=== PATIENT | female | born 1995 | race Caucasian/White ===

== ENCOUNTER 2017-04-02 19:44 | Emergency (ER) | payer MEDICAID ==
[~2017-04-02] VITALS: Ht 160 cm; Wt 182.0 kg
[~2017-04-02 19:44] MED LIST: ALBU6.7H INH; IBUP-1984 PO; NO HOME MEDS; OMEP40CA37 PO; ONDA4TAB6 PO; PANT40TA39 PO; PRED20TA PO; TRAM50TA2 PO
[2017-04-02 20:27] LABS: BASOPHILS # (AUTO) 0.1 X10'3 (0-0.2); BASOPHILS % (AUTO) 1.1 % (0-1); EOSINOPHILS # (AUTO) 0.2 X10'3 (0-0.9); EOSINOPHILS % (AUTO) 1.2 % (0-6); HEMATOCRIT 41.6 % (35.0-45.0); LYMPHOCYTES # (AUTO) 3.5 X10'3 (1.1-4.8); LYMPHOCYTES % (AUTO) 27.1 % (21-51); MEAN CORPUSCULAR HEMOGLOBIN 28.7 PG (27.0-31.0); MEAN CORPUSCULAR HGB CONC 33.7 % (33.0-36.5); MEAN CORPUSCULAR VOLUME 85.3 FL (78-98); MEAN PLATELET VOLUME 8.8 FL (7.4-10.4); MONOCYTES # (AUTO) 0.6 X10'3 (0-0.9); MONOCYTES % (AUTO) 4.9 % (2-12); NEUTROPHILS # (AUTO) 8.5 X10'3 (1.8-7.7); NEUTROPHILS % (AUTO) 65.7 % (42-75); PLATELET COUNT 358 X10'3 (140-440); RED BLOOD COUNT 4.88 X10'6 (4.20-5.60); RED CELL DISTRIBUTION WIDTH 15.4 % (11.5-14.5); WHITE BLOOD COUNT 12.9 X10'3 (4.5-11.0)
[2017-04-02 20:38] LABS: PROTHROMBIN TIME 10.6 SECONDS (9.0-12.0)
[2017-04-02 20:39] LABS: CLARITY,URINE CLEAR (Clear); COLOR,URINE YELLOW (Yellow); GLUCOSE, URINE NEGATIVE (Neg); KETONES,URINE NEGATIVE (Neg); LEUKOCYTE ESTERASE ,URINE NEGATIVE (Neg); NITRITES, URINE NEGATIVE (Neg); OCCULT BLOOD,URINE LARGE (Neg); PROTEIN,URINE NEGATIVE (Neg); UROBILINOGEN,URINE 0.2 E.U/dL (0.2-1.0)
[2017-04-02 20:45] LABS: UA COLLECTION TYPE CLN CATCH MIDSTREAM
[2017-04-02 20:46] LABS: BACTERIA,URINE FEW /HPF (Neg); RBC,URINE 0-2 /HPF (0-2); SQUAMOUS EPITHELIAL CELL,UR FEW /LPF (FEW); WBC,URINE 0-4 /HPF (0-4)
[2017-04-02 20:48] LABS: ALANINE AMINOTRANSFERASE 54 U/L (12-78); ALBUMIN 3.3 G/DL (3.4-5.0); ALBUMIN/GLOBULIN RATIO 0.7 (1.1-1.5); ALKALINE PHOSPHATASE 126 IU/L (46-116); ANION GAP 8 (8-16); ASPARTATE AMINO TRANSFERASE 35 U/L (10-37); BILIRUBIN,TOTAL 0.3 MG/DL (0.1-1.0); BLOOD UREA NITROGEN 9 MG/DL (7-18); BUN/CREATININE RATIO 11.3 (6.6-38.0); CALCIUM 8.8 MG/DL (8.5-10.1); CHLORIDE 105 MMOL/L (99-107); GLUCOSE 123 MG/DL (70-104); SODIUM 142 MMOL/L (135-145); TOTAL CARBON DIOXIDE 28.8 MMOL/L (24-32); TOTAL PROTEIN 8.3 G/DL (6.4-8.2); eGFR 90 ML/MIN
[2017-04-02 22:29] LABS: URINE HCG NEGATIVE (NEG)
[2017-04-02 22:51] VITALS: BP 123/59
== END 2017-04-02 22:52 | disposition home or self-care (01) ==
LOC: ER 19:44
DX: N93.9 Abnormal uterine and vaginal bleeding, unspecified (principal); G43.909 Migraine, unspecified, not intractable, without status migrainosus; J45.909 Unspecified asthma, uncomplicated; Z59.0 Homelessness; Z79.899 Other long term (current) drug therapy; Z91.018 Allergy to other foods
CPT/HCPCS: 36415; 80053; 81001; 81025; 85025; 85610; 99284

== ENCOUNTER 2017-07-24 20:53 | Emergency (ER) | payer MEDICAID ==
[~2017-07-24] VITALS: Ht 160 cm; Wt 149.0 kg
[2017-07-24 21:00] VITALS: BP 153/114
[2017-07-24] MEDS ORDERED: amox tr/potassium clavulanate 875/125mg TAB PO ONE (21:50)
[2017-07-24] MEDS ORDERED: ibuprofen tablet 400 MG TABLET PO ONE (21:50)
[2017-07-24] MEDS ORDERED: TETanus/Pertussis (Acell)/Diphther VAC/PF (Tdap-Adult) 0.5ml syringe IM ONE (21:50)
[2017-07-24] MEDS ORDERED: AMOX-422 PO (21:51)
== END 2017-07-24 22:16 | disposition home or self-care (01) ==
LOC: ER 20:53
DX: S51.811A Laceration without foreign body of right forearm, initial encounter (principal); J45.909 Unspecified asthma, uncomplicated; G43.909 Migraine, unspecified, not intractable, without status migrainosus; Z59.0 Homelessness; Z91.018 Allergy to other foods; Z79.899 Other long term (current) drug therapy; W26.0XXA Contact with knife, initial encounter; Y93.89 Activity, other specified; Y92.89 Other specified places as the place of occurrence of the external cause; Y99.8 Other external cause status
CPT/HCPCS: 90471; 90715; 99283

== ENCOUNTER 2017-12-02 16:19 | Inpatient (IN) | payer MEDICAID ==
[~2017-12-02] VITALS: Ht 160 cm; Wt 179.0 kg
[2017-12-02 17:08] LABS: BASOPHILS % (AUTO) 0.2 % (0-1); EOSINOPHILS # (AUTO) 0.1 X10'3 (0-0.9); EOSINOPHILS % (AUTO) 0.5 % (0-6); HEMATOCRIT 43.2 % (35.0-45.0); HEMOGLOBIN 14.6 g/dl (12.0-16.0); LYMPHOCYTES # (AUTO) 1.5 X10'3 (1.1-4.8); LYMPHOCYTES % (AUTO) 13.1 % (21-51); MEAN CORPUSCULAR HEMOGLOBIN 29.1 PG (27.0-31.0); MEAN CORPUSCULAR HGB CONC 33.8 % (33.0-36.5); MEAN CORPUSCULAR VOLUME 86.1 FL (78-98); MEAN PLATELET VOLUME 9.1 FL (7.4-10.4); MONOCYTES # (AUTO) 0.4 X10'3 (0-0.9); MONOCYTES % (AUTO) 3.5 % (2-12); NEUTROPHILS # (AUTO) 9.6 X10'3 (1.8-7.7); NEUTROPHILS % (AUTO) 82.7 % (42-75); PLATELET COUNT 328 X10'3 (140-440); RED BLOOD COUNT 5.02 X10'6 (4.20-5.60); RED CELL DISTRIBUTION WIDTH 14.7 % (11.5-14.5); WHITE BLOOD COUNT 11.6 X10'3 (4.5-11.0)
[2017-12-02 17:16] LABS: CLARITY,URINE CLOUDY (Clear); COLOR,URINE YELLOW (Yellow); GLUCOSE, URINE NEGATIVE (Neg); KETONES,URINE NEGATIVE (Neg); LEUKOCYTE ESTERASE ,URINE TRACE (Neg); NITRITES, URINE NEGATIVE (Neg); OCCULT BLOOD,URINE SMALL (Neg); PROTEIN,URINE TRACE mg/dl (Neg); UROBILINOGEN,URINE 0.2 E.U/dL (0.2-1.0)
[2017-12-02 17:18] LABS: INR 1.1 INR; PROTHROMBIN TIME 11.2 SECONDS (9.0-12.0)
[2017-12-02 17:20] LABS: URINE HCG NEGATIVE (NEG)
[2017-12-02 17:26] LABS: ALANINE AMINOTRANSFERASE 35 U/L (12-78); ALBUMIN 3.2 G/DL (3.4-5.0); ALBUMIN/GLOBULIN RATIO 0.6 (1.1-1.5); ALKALINE PHOSPHATASE 106 IU/L (46-116); ANION GAP 9 (8-16); ASPARTATE AMINO TRANSFERASE 23 U/L (10-37); BILIRUBIN,TOTAL 0.7 MG/DL (0.1-1.0); BLOOD UREA NITROGEN 10 MG/DL (7-18); BUN/CREATININE RATIO 11.5 (6.6-38.0); CALCIUM 8.5 MG/DL (8.5-10.1); CHLORIDE 98 MMOL/L (99-107); CREATININE 0.87 MG/DL (0.40-0.90); GLUCOSE 91 MG/DL (70-104); LIPASE 74 U/L (73-393); POTASSIUM 3.6 MMOL/L (3.5-5.1); SODIUM 134 MMOL/L (135-145); TOTAL CARBON DIOXIDE 26.6 MMOL/L (24-32); TOTAL PROTEIN 8.6 G/DL (6.4-8.2); eGFR 81 ML/MIN
[2017-12-02 17:38] LABS: UA COLLECTION TYPE CLN CATCH MIDSTREAM
[2017-12-02 17:39] LABS: BACTERIA,URINE 3+ /HPF (Neg); MUCUS STRANDS MODERATE /LPF (Neg); RBC,URINE 0-2 /HPF (0-2); SQUAMOUS EPITHELIAL CELL,UR MANY /LPF (FEW)
[2017-12-02] MEDS ORDERED: morphine 4 MG/ML inj SYRINge IV PRN (17:40)
[2017-12-02] MEDS ORDERED: normal saline 1000ML IV soln IVB ONE (17:40)
[2017-12-02] MEDS ORDERED: ondansetron/PF 4mg/2ml inj IV ONE (17:40)
[2017-12-02 18:00] VITALS: BP 144/76
[2017-12-02] MEDS ORDERED: ketorolac trometh. 30mg/ml inj. IV ONE (18:00)
[2017-12-02] MEDS ORDERED: piperacillin/tazo 3.375gm/50ml 50 ML IV ONE (18:40)
[2017-12-02] MEDS ORDERED: dextrose 5%-1/2 normal saline 1,000 ML IV SCH (19:12)
[2017-12-02] MEDS ORDERED: bisacodyl 10mg suppository rectal RC PRN (19:15)
[2017-12-02] MEDS ORDERED: ondansetron/PF 4mg/2ml inj IV PRN (19:15)
[2017-12-02] MEDS ORDERED: diphenhydrAMINE 50 mg/ml inj IV PRN (19:15)
[2017-12-02] MEDS ORDERED: acetaminophen 650mg rectal suppository RC PRN (19:15)
[2017-12-02] MEDS ORDERED: HYDROmorphone 1 mg/ml syringe IV PRN ×2 (19:15)
[2017-12-02] MEDS ORDERED: metoclopramide 5 mg/ml inj IV PRN (19:15)
[2017-12-02] MEDS ORDERED: morphine 2 MG/ML inj. syringe IV PRN ×2 (19:15)
[2017-12-02] MEDS ORDERED: acetaminophen 325mg tablet PO PRN (19:15)
[2017-12-02] MEDS ORDERED: mag hydrox/Alum hydrox/simeth 30ml oral suspension PO PRN (19:15)
[2017-12-02] MEDS ORDERED: magnesium hydroxide 30ml (MOM) UD suspension PO PRN (19:15)
[2017-12-02] MEDS ORDERED: diphenhydrAMINE 25mg capsule PO PRN (19:15)
[2017-12-02] MEDS ORDERED: HYDROcodone/acetaminophen 5mg/325mg tablet PO PRN (19:15)
[2017-12-02] MEDS ORDERED: HYDROcodone/acetaminophen 10/325mg tab PO PRN (19:15)
[2017-12-02] MEDS ORDERED: pantoprazole 40 MG vial IV SCH (19:20)
[2017-12-02] MEDS ORDERED: nicotine 21mg patch - 24 hr TD SCH (19:20)
[2017-12-02 19:44] LABS: MAGNESIUM 1.6 MG/DL (1.5-2.4); PHOSPHORUS 3.1 MG/DL (2.3-4.5)
[2017-12-02] MEDS ORDERED: docusate sod 100mg capsule PO SCH (20:00)
[2017-12-02 20:32] LABS: HEMOGLOBIN A1C 5.6 % (4.5-6.2)
[2017-12-02] MEDS ORDERED: temazepam 15mg capsule PO PRN (21:00)
[2017-12-02] MEDS ORDERED: diatr meglu/diatrizoate 30ml oral sol.-(3 dose) bottle PO SCH (22:10)
[2017-12-02] MEDS ORDERED: diatrozoate meglu/diatrozoate sod (37% iodine) 120ML oral solution PO PRN (22:50)
[2017-12-02] MEDS ORDERED: diatrozoate meglu/diatrozoate sod (37% iodine) 120ML oral solution PO ONE (22:50)
[2017-12-02] MEDS ORDERED: diatr meglu/diatrizoate 30ml oral sol.-(3 dose) bottle PO PRN (23:00)
[2017-12-02] MEDS ORDERED: diatr meglu/diatrizoate 30ml oral sol.-(3 dose) bottle PO ONE (23:05)
[2017-12-03] VITALS: BP 125/76
[2017-12-03] MEDS ORDERED: piperacillin/tazo 4.5gm/100ml 100 ML IV SCH
[2017-12-03] MEDS ORDERED: diatr meglu/diatrizoate 30ml oral sol.-(3 dose) bottle PO ONE (07:00)
== END 2017-12-03 01:01 | disposition left against medical advice (07) | DRG 254 ==
LOC: ER 16:20 → SUR 3N 19:12
PROVIDERS: ADMIT Family Medicine; ATTEND Family Medicine
DX: K35.80 Unspecified acute appendicitis (principal); E66.01 Morbid (severe) obesity due to excess calories; E86.0 Dehydration; F12.90 Cannabis use, unspecified, uncomplicated; F17.200 Nicotine dependence, unspecified, uncomplicated; I10 Essential (primary) hypertension; Z53.21 Procedure and treatment not carried out due to patient leaving prior to being seen by health care provider; G43.909 Migraine, unspecified, not intractable, without status migrainosus; J45.909 Unspecified asthma, uncomplicated; Z59.0 Homelessness; Z91.018 Allergy to other foods; Z71.3 Dietary counseling and surveillance; Z68.44 Body mass index [BMI] 60.0-69.9, adult
CPT/HCPCS: 36415; 80053; 81001; 81025; 83036; 83605; 83690; 83735; 83880; 84100; 84484; 85025; 85610; 87040; 87070; 96365; 96375; 99285; C9113; J1885; J2405; J2543; J2765; J7030; Q9963

== ENCOUNTER 2018-03-02 18:34 | Emergency (ER) | payer MEDICAID ==
[~2018-03-02] VITALS: Ht 160 cm; Wt 156.0 kg
[~2018-03-02 18:34] MED LIST changes: -ALBU6.7H INH; -IBUP-1984 PO; -OMEP40CA37 PO; -ONDA4TAB6 PO; -PANT40TA39 PO; -PRED20TA PO; -TRAM50TA2 PO
[2018-03-02 18:51] VITALS: BP 141/101
[2018-03-02] MEDS ORDERED: AMOX-422 PO (20:12)
[2018-03-02] MEDS ORDERED: LIDOcaine 0.5% W/epiNEPHrine 1:200,000 50ml vial IJ ONE (20:15)
== END 2018-03-02 21:05 | disposition home or self-care (01) ==
LOC: ER 18:34
DX: K08.89 Other specified disorders of teeth and supporting structures (principal); G43.909 Migraine, unspecified, not intractable, without status migrainosus; J45.909 Unspecified asthma, uncomplicated; F12.90 Cannabis use, unspecified, uncomplicated; Z88.8 Allergy status to other drugs, medicaments and biological substances; Z79.899 Other long term (current) drug therapy; Z59.0 Homelessness
CPT/HCPCS: 64400; 99284; J3490

== ENCOUNTER 2018-03-23 00:08 | Emergency (ER) | payer MEDICAID ==
[~2018-03-23] VITALS: Ht 160 cm; Wt 172.9 kg
[2018-03-23 00:16] VITALS: BP 157/100
[2018-03-23] MEDS ORDERED: TRAM50TA2 PO (00:46)
[2018-03-23] MEDS ORDERED: PENI500T2 PO (00:46)
[2018-03-23] MEDS ORDERED: traMADol 50MG tablet PO ONE (00:50)
== END 2018-03-23 01:06 | disposition home or self-care (01) ==
LOC: ER 00:09
DX: K02.9 Dental caries, unspecified (principal); K08.89 Other specified disorders of teeth and supporting structures; G43.909 Migraine, unspecified, not intractable, without status migrainosus; J45.909 Unspecified asthma, uncomplicated; F12.10 Cannabis abuse, uncomplicated; Z91.041 Radiographic dye allergy status; Z91.018 Allergy to other foods; Z79.899 Other long term (current) drug therapy
CPT/HCPCS: 99283

== ENCOUNTER 2018-03-29 10:59 | Emergency (ER) | payer MEDICAID ==
[~2018-03-29] VITALS: Ht 160 cm; Wt 170.0 kg
[~2018-03-29 10:59] MED LIST changes: -NO HOME MEDS; +PENI500T2 PO; +TRAM50TA2 PO
[2018-03-29 11:03] VITALS: BP 162/94
[2018-03-29] MEDS ORDERED: HYDROcodone/acetaminophen 5mg/325mg tablet PO ONE (11:25)
[2018-03-29] MEDS ORDERED: CLIN150C2 PO (11:25)
[2018-03-29] MEDS ORDERED: NAPR-56 PO (11:25)
== END 2018-03-29 11:48 | disposition home or self-care (01) ==
LOC: ER 11:00
DX: K08.89 Other specified disorders of teeth and supporting structures (principal); F12.90 Cannabis use, unspecified, uncomplicated; G43.909 Migraine, unspecified, not intractable, without status migrainosus; J45.909 Unspecified asthma, uncomplicated; Z91.018 Allergy to other foods; Z88.8 Allergy status to other drugs, medicaments and biological substances; Z79.899 Other long term (current) drug therapy
CPT/HCPCS: 99283

== ENCOUNTER 2019-05-29 01:59 | Emergency (ER) | payer MEDICAID ==
[~2019-05-29] VITALS: Ht 160 cm; Wt 136.5 kg
[2019-05-29] MEDS ORDERED: ACET-3067 PO (02:24)
[2019-05-29] MEDS ORDERED: PENI500T2 PO (02:24)
[2019-05-29] MEDS ORDERED: HYDROcodone/acetaminophen 5mg/325mg tablet PO ONE (02:25)
[2019-05-29 02:40] VITALS: BP 146/88
== END 2019-05-29 02:37 | disposition home or self-care (01) ==
LOC: ER 01:59
DX: S03.2XXA Dislocation of tooth, initial encounter (principal); G43.909 Migraine, unspecified, not intractable, without status migrainosus; J45.909 Unspecified asthma, uncomplicated; Z88.6 Allergy status to analgesic agent; Z91.018 Allergy to other foods; Z79.899 Other long term (current) drug therapy; X58.XXXA Exposure to other specified factors, initial encounter; Y93.89 Activity, other specified; Y92.89 Other specified places as the place of occurrence of the external cause; Y99.8 Other external cause status
CPT/HCPCS: 99283

== ENCOUNTER 2019-06-26 11:19 | Emergency (ER) | payer MEDICAID ==
[~2019-06-26] VITALS: Ht 160 cm; Wt 166.0 kg
[2019-06-26] MEDS ORDERED: HYDROcodone/acetaminophen 5mg/325mg tablet PO ONE (11:45)
[2019-06-26] MEDS ORDERED: ondansetron 4mg rapidly disintigrating tab PO ONE (11:45)
[2019-06-26] MEDS ORDERED: ACET-1025 PO (11:46)
[2019-06-26] MEDS ORDERED: PENI500T2 PO (11:46)
[2019-06-26] MEDS ORDERED: CLIN300C70 PO (12:08)
[2019-06-26 12:12] VITALS: BP 142/88
== END 2019-06-26 12:13 | disposition home or self-care (01) ==
LOC: ER 11:20
DX: K04.7 Periapical abscess without sinus (principal); G43.909 Migraine, unspecified, not intractable, without status migrainosus; J45.909 Unspecified asthma, uncomplicated; Z59.0 Homelessness; Z88.6 Allergy status to analgesic agent; Z91.018 Allergy to other foods; Z79.899 Other long term (current) drug therapy
CPT/HCPCS: 99283

== ENCOUNTER 2022-01-31 20:56 | Emergency (ER) | payer MEDICAID ==
[~2022-01-31] VITALS: Ht 160 cm; Wt 164.2 kg
[2022-01-31 21:56] VITALS: BP 170/92
== END 2022-02-01 01:03 | disposition left against medical advice (07) ==
LOC: ER 20:56
DX: R51.9 Headache, unspecified (principal); K92.0 Hematemesis; Z53.21 Procedure and treatment not carried out due to patient leaving prior to being seen by health care provider

== ENCOUNTER 2022-10-10 14:18 | Emergency (ER) | payer MEDICAID ==
[~2022-10-10] VITALS: Ht 160 cm; Wt 159.1 kg
[2022-10-10 14:53] VITALS: BP 128/98; PULSE 104; RESP 18; TEMP 97.4; O2SAT 96
== END 2022-10-10 17:31 | disposition left against medical advice (07) ==
LOC: ER 14:18
DX: M54.9 Dorsalgia, unspecified (principal); R11.0 Nausea; Z53.21 Procedure and treatment not carried out due to patient leaving prior to being seen by health care provider
CPT/HCPCS: 99281